=== PATIENT | male | born 2000 | race Native Hawaiian/Other Pacific Islander ===

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

== ENCOUNTER → 2019-02-15 | Outpatient (CLI) | payer BC ==
[~2019-02-15] MED LIST: Iopamidol 755 Mg/ML 100 ML Bottle IV ONE
== END ==
LOC: FB.MRI 16:49 → FB.DI 16:49
PROVIDERS: ATTEND Family Medicine
DX: R19.7 Diarrhea, unspecified (principal)
CPT/HCPCS: 74177; Q9967

== ENCOUNTER 2021-01-23 20:52 | Emergency (ER) | payer BC ==
[2021-01-23] MEDS ORDERED: diphenhydrAMINE 50 MG/ML SDV IM STA (21:04)
[2021-01-23] MEDS ORDERED: methylPREDNISolone Sodium Succinate 125 MG/2 ML SDV IM STA (21:04)
--- NOTE | 2021-01-23 21:14 | EDM.PDOC ---
ED HPI GENERAL MEDICAL PROBLEM - General Stated Complaint: ALLERGIC REACTION Time Seen by Provider: 01/23/21 20:55 Source of Information: Reports: Patient History Limitations: Reports: No Limitations - History of Present Illness INITIAL COMMENTS - FREE TEXT/NARRATIVE: Patient presented to the ED because of hives which started o the rt arm and now it's all over his body. There is no fever, chills but has cough and cold for 1 week. There is no dyspnea or chocking sensation. - Related Data Allergies Allergy/AdvReac Type Severity Reaction Status Date / Time amoxicillin Allergy Rash Verified 04/11/18 15:39 Home Meds: Home Meds Doxycycline [Vibramycin] 200 mg PO DAILY #5 cap 04/11/18 [Rx] Ondansetron [Ondansetron ODT] 4 mg PO ASDIRECTED PRN 04/11/18 [History] predniSONE [Prednisone] 20 mg PO BID #6 tablet 01/23/21 [Rx] Past Medical History - Past Health History Medical/Surgical History: Denies Medical/Surgical History ED ROS GENERAL - Review of Systems Review Of Systems: See Below Constitutional: Reports: No Symptoms HEENT: Reports: No Symptoms Respiratory: Reports: Cough Cardiovascular: Reports: No Symptoms Endocrine: Reports: No Symptoms GI/Abdominal: Reports: No Symptoms : Reports: No Symptoms Musculoskeletal: Reports: No Symptoms Skin: Reports: Rash Neurological: Reports: No Symptoms Psychiatric: Reports: No Symptoms ED EXAM, SKIN/RASH Exam: See Below Exam Limited By: No Limitations General Appearance: Alert, No Apparent Distress Eye Exam: Bilateral Eye: PERRL Ears: Normal External Exam, Normal Canal Nose: Normal Inspection, Normal Mucosa, No Blood Throat/Mouth: Normal Inspection, Normal Lips, Normal Teeth Head: Atraumatic, Normocephalic Neck: Normal Inspection, Supple, Non-Tender, Full Range of Motion Respiratory/Chest: No Respiratory Distress, Lungs Clear, Normal Breath Sounds, No Accessory Muscle Use, Chest Non-Tender Cardiovascular: Normal Peripheral Pulses, Regular Rate, Rhythm, No Edema, No Gallop, No JVD, No Murmur, No Rub GI/Abdominal: Normal Bowel Sounds, Soft, Non-Tender, No Organomegaly, No Distention, No Abnormal Bruit, No Mass Back Exam: Normal Inspection, Full Range of Motion Extremities: Normal Inspection, Normal Range of Motion, Non-Tender, No Pedal Edema, Normal Capillary Refill Neurological: Alert, Oriented, CN II-XII Intact, Normal Cognition Psychiatric: Normal Affect, Normal Mood Skin: Other (hives) Course - Vital Signs Text/Narrative:: Solumedrol 125 mg IM x1 Benadryl 125 mg IM x1 - Orders/Labs/Meds Meds: Medications Discontinued Medications Generic Name Dose Route Start Last Admin Trade Name Nacho PRN Reason Stop Dose Admin Diphenhydramine HCl 50 mg 01/23/21 21:04 Diphenhydramine 50 Mg/Ml Sdv IM 01/23/21 21:05 NOW STA Methylprednisolone Sodium Succinate 125 mg 01/23/21 21:04 Methylprednisolone Sodium Succinate 125 Mg/2 Ml Sdv IM 01/23/21 21:05 NOW STA Departure - Departure Time of Disposition: 21:45 Disposition: Home, Self-Care 01 Condition: Good Clinical Impression: Urticaria, URI (upper respiratory infection) - Discharge Information Prescriptions: predniSONE [Prednisone] 20 mg PO BID #6 tablet Instructions: Upper Respiratory Infection, Adult, [id number], Hives Referrals: PCP,None [Primary Care Provider] - Additional Instructions: Please read discharge instructions on URI and Hives Benadryl 25 mg, 2 tablets every 6 hours as needed for the rash,burning and itching Prednisone 20 mg twice daily for 3 days Follow up as needed
== END 2021-01-23 21:25 | disposition home or self-care (01) ==
LOC: FB.ED 20:52
DX: L50.9 Urticaria, unspecified (principal); J06.9 Acute upper respiratory infection, unspecified; Z88.0 Allergy status to penicillin
CPT/HCPCS: 96372; 99282; J1200; J2930

== ENCOUNTER 2021-01-27 19:48 | Emergency (ER) | payer BC ==
[2021-01-27] MEDS ORDERED: Potassium Chloride 20 MEQ Tab.ER PO STA (21:46)
--- NOTE | 2021-01-27 22:04 | EDM.PDOC ---
ED HPI GENERAL MEDICAL PROBLEM - General Chief Complaint: Allergic Reaction Stated Complaint: MEDS NOT WORKING/ALLERGIC REACTION Time Seen by Provider: 01/27/21 20:05 Source of Information: Reports: Patient History Limitations: Reports: No Limitations - History of Present Illness INITIAL COMMENTS - FREE TEXT/NARRATIVE: Patient presented to the ED because of itching and burning hives all over his body. He was seen in the ED for the same problem and was prescribed prednisone and benadryl which helped with the hives. there is no associated fever, cough or cold. - Related Data Allergies Allergy/AdvReac Type Severity Reaction Status Date / Time amoxicillin Allergy Rash Verified 04/11/18 15:39 tide Allergy Rash Uncoded 01/23/21 23:21 Home Meds: Home Meds predniSONE [Prednisone] 20 mg PO BID #6 tablet 01/23/21 [Rx] Past Medical History - Past Health History Medical/Surgical History: Denies Medical/Surgical History Social & Family History - Family History Family Medical History: No Pertinent Family History - Tobacco Use Tobacco Use Status *Q: Current Some Day Tobacco User Years of Tobacco use: 3 Packs/Tins Daily: 0.3 - Caffeine Use Caffeine Use: Reports: None - Alcohol Use Days Per Week of Alcohol Use: 2 Number of Drinks Per Day: 6 Total Drinks Per Week: 12 - Recreational Drug Use Recreational Drug Use: No ED ROS ALLERGIC REACTION - Review of Systems Review Of Systems: See Below Constitutional: Reports: No Symptoms HEENT: Reports: No Symptoms Respiratory: Reports: No Symptoms Cardiovascular: Reports: No Symptoms Endocrine: Reports: No Symptoms GI/Abdominal: Reports: No Symptoms : Reports: No Symptoms Musculoskeletal: Reports: No Symptoms Skin: Reports: Rash Neurological: Reports: No Symptoms ED EXAM GENERAL NO PERIP PULSE - Physical Exam Exam: See Below Exam Limited By: No Limitations General Appearance: Alert, No Apparent Distress Eye Exam: Bilateral Eye: PERRL Ears: Normal External Exam, Normal Canal Nose: Normal Inspection, Normal Mucosa, No Blood Throat/Mouth: Normal Inspection, Normal Lips, Normal Teeth Head: Atraumatic, Normocephalic Neck: Normal Inspection, Supple, Non-Tender, Full Range of Motion Respiratory/Chest: No Respiratory Distress, Lungs Clear, Normal Breath Sounds, No Accessory Muscle Use, Chest Non-Tender Cardiovascular: Normal Peripheral Pulses, Regular Rate, Rhythm, No Edema, No Gallop, No JVD, No Murmur GI/Abdominal: Normal Bowel Sounds, Soft, Non-Tender, No Organomegaly, No Distention, No Abnormal Bruit Back Exam: Normal Inspection, Full Range of Motion Extremities: Normal Inspection, Normal Range of Motion, Non-Tender, No Pedal Edema, Normal Capillary Refill Neurological: Alert, Oriented, CN II-XII Intact Skin Exam: Other (hives with scaling-all over) Course - Vital Signs Text/Narrative:: Reassurance Last Recorded V/S: Last Vital Signs Temp 37.3 C 01/27/21 22:33 Pulse 94 01/27/21 22:33 Resp 18 01/27/21 22:33 BP 118/70 01/27/21 22:33 Pulse Ox 98 01/27/21 22:33 - Orders/Labs/Meds Labs: Laboratory Tests 01/27/21 01/27/21 01/27/21 Range/Units 20:25 20:30 20:30 WBC 11.4 H (3.2-10.1) x10-3/uL RBC 4.93 (3.90-5.90) x10(6)uL Hgb 14.4 (12.9-17.7) g/dL Hct 43.1 (38.3-50.1) % MCV 87.4 (80.8-98.7) fL MCH 29.2 (27.0-33.3) pg MCHC 33.4 (28.7-35.3) g/dL RDW 12.5 (12.4-15.0) % Plt Count 343 (117-477) x10(3)uL MPV 6.5 L (6.7-11.0) fL Neut % (Auto) 63.7 (40.3-71.8) % Lymph % (Auto) 29.9 (15.8-45.3) % Will % (Auto) 5.6 (5.5-15.2) % Eos % (Auto) 0.5 (0.1-6.8) % Baso % (Auto) 0.3 (0.3-3.8) % Neut # (Auto) 7.3 H (1.7-6.9) x10-3/uL Lymph # (Auto) 3.4 (0.5-4.5) x10-3/uL Will # (Auto) 0.6 (0.0-1.2) x10-3/uL Eos # (Auto) 0.1 (0.0-0.6) x10-3/uL Baso # (Auto) 0.0 (0.0-0.3) x10-3/uL Sodium 138 (135-145) mmol/L Potassium 3.3 L (3.5-5.3) mmol/L Chloride 103 (100-110) mmol/L Carbon Dioxide 27 (21-32) mmol/L BUN 24 H (7-18) mg/dL Creatinine 1.0 (0.70-1.30) mg/dL Est Cr Clr Drug Dosing 120.65 mL/min Estimated GFR (MDRD) > 60 (>60) BUN/Creatinine Ratio 24.0 H (9-20) Glucose 154 H (80-116) mg/dL Calcium 8.1 L (8.6-10.2) mg/dL Group A Strep (PCR) Not detected (NOT DETECT) Meds: Medications Discontinued Medications Generic Name Dose Route Start Last Admin Trade Name Freq PRN Reason Stop Dose Admin Potassium Chloride 40 meq 01/27/21 21:46 01/27/21 22:33 Potassium Chloride 20 Meq Tab.Er PO 01/27/21 21:47 40 meq NOW STA Administration Departure - Departure Time of Disposition: 22:30 Disposition: Home, Self-Care 01 Condition: Good Clinical Impression: Pityriasis rosea - Discharge Information Instructions: Pityriasis Rosea Referrals: PCP,None [Primary Care Provider] - Forms: ED Department Discharge Additional Instructions: Please read discharge instructions on ptyriasis rosea I f there is itching take benadryl 25-50 mg every 4-6 hours as needed Make your skin moist by applying lotion The claudio from ptyriasis rosea may persist for 6-8 weeks Follow up as needed Sepsis Event Note (ED) - Evaluation Sepsis Screening Result: No Definite Risk
== END 2021-01-27 22:34 | disposition home or self-care (01) ==
LOC: FB.ED 19:48
DX: L42 Pityriasis rosea (principal); Z88.0 Allergy status to penicillin; Z91.048 Other nonmedicinal substance allergy status; Z72.0 Tobacco use
CPT/HCPCS: 36415; 70360; 80048; 85025; 87651; 99283; A9270